=== PATIENT | male | born 1955 | race Caucasian/White ===

== ENCOUNTER → 2020-05-15 | Outpatient (CLI) | payer MEDICARE ==
--- NOTE | 2020-05-15 17:04 | Diagnostic Imaging Report ---
INDICATION: Right knee pain Three views of the right knee show no fracture, dislocation or other acute abnormalities. IMPRESSION: Negative right knee. Dictated by: Dictated on workstation # [id number]
== END ==
LOC: RAD FS 13:31
PROVIDERS: ATTEND Nurse Practitioner
DX: M25.561 Pain in right knee (principal)
CPT/HCPCS: 73562

== ENCOUNTER 2022-04-06 12:34 | Emergency (ER) | payer MEDICARE ==
[~2022-04-06] VITALS: Ht 180.3 cm; Wt 104.3 kg
[2022-04-06 12:40] VITALS: BP 179/99
--- NOTE | 2022-04-06 12:43 | ED GU-Female ---
General Chief Complaint: - Reproductive Stated Complaint: HEMATURIA History of Present Illness Date Seen by Provider: Apr 06, 2022 Time Seen by Provider: 12:39 Initial Comments 66-year-old male presents with hematuria. He reports that he has had 2 episodes of gross hematuria today whenever has some blood clots. He denies any flank pain he denies any fevers or chills. He is on a blood thinner. He reports last time this happened he had a urinary tract infection. He denies any nausea vomiting Allergies and Home Medications Allergies Coded Allergies: No Known Drug Allergies (Unverified , 04/06/22) Patient Home Medication List Home Medication List Reviewed: Yes Review of Systems Review of Systems Constitutional: No chills, No fever Respiratory: no symptoms reported Cardiovascular: no symptoms reported Gastrointestinal: no symptoms reported Genitourinary: see HPI; denies flank pain; hematuria, urgency Musculoskeletal: no symptoms reported Skin: no symptoms reported Psychiatric/Neurological: No Symptoms Reported Physical Exam Vital Signs Vital Signs - First Documented 04/06/22 12:40 Temp 36.6 Pulse 75 Resp 18 B/P (MAP) 179/99 (125) Pulse Ox 96 O2 Delivery Room Air Capillary Refill : Height, Weight, BMI Height: '" Weight: lbs. oz. kg; BMI Method: General Appearance: WD/WN, no apparent distress Cardiovascular: normal peripheral pulses, regular rate, rhythm Respiratory: lungs clear, normal breath sounds Gastrointestinal: non tender, soft Extremities: normal range of motion, non-tender Neurologic/Psychiatric: alert, normal mood/affect, oriented x 3 Skin: normal color, warm/dry Progress/Results/Core Measures Suspected Sepsis SIRS Temperature: Pulse: Respiratory Rate: Blood Pressure / Mean: Results/Orders Lab Results Laboratory Tests Test 04/06/22 12:38 Range/Units Urine Color YELLOW Urine Clarity CLEAR Urine pH 5.5 5-9 Urine Specific [place] <=1.005 1.016-1.022 Urine Protein NEGATIVE NEGATIVE Urine Glucose (UA) 1+ H NEGATIVE Urine Ketones NEGATIVE NEGATIVE Urine Nitrite NEGATIVE NEGATIVE Urine Bilirubin NEGATIVE NEGATIVE Urine Urobilinogen 0.2 < = 1.0 MG/DL Urine Leukocyte Esterase NEGATIVE NEGATIVE Urine RBC (Auto) 3+ H NEGATIVE Urine RBC 50-100 H /HPF Urine WBC NONE /HPF Urine Squamous Epithelial Cells 2-5 /HPF Urine Crystals NONE /LPF Urine Bacteria TRACE /HPF Urine Casts NONE /LPF Urine Mucus NEGATIVE /LPF Urine Culture Indicated NO My Orders Orders - PILAR MATIAS DO Ua Culture If Indicated (04/06/22 12:43) Ct Abdomen/Pelvis Wo (04/06/22 12:43) Vital Signs/I&O 04/06/22 12:40 Temp 36.6 Pulse 75 Resp 18 B/P (MAP) 179/99 (125) Pulse Ox 96 O2 Delivery Room Air Capillary Refill : Progress Note : Progress Note Patient's urine was reviewed and showed hematuria but no infection noted. CT showed enlarged prostate but no kidney stone or bladder abnormalities noted on CT. I discussed findings with patient. Discussed with patient the need to follow-up with his primary care provider Dr. Cedeño for further evaluation of both his hematuria and his enlarged prostate. This time no further work-up is indicated in the emergency room. We did discuss Flomax but patient has strong urine stream so do not feel like it would benefit him. Patient was stable and discharged home Departure Impression Primary Impression: Hematuria Qualified Codes: R31.9 - Hematuria, unspecified Additional Impression: Enlarged prostate Disposition: HOME, SELF-CARE Condition: Stable Departure-Patient Inst. Referrals: BHAVIK CEDEÑO MD (PCP) Primary Care Physician Patient Instructions: Blood in Urine (Hematuria), Adult ED Add. Discharge Instructions: Please follow-up with Dr. Cedeño in 3 to 4 days to have your urine rechecked to ensure that it is clearing. Also discussed further evaluation of your prostate. Follow-up sooner if the blood in your urine worsens or with any other concerns. All discharge instructions reviewed with patient and/or family. Voiced understanding. PILAR MATIAS DO Apr 06, 2022 12:43
[2022-04-06 12:48] LABS: BACTERIA,URINE TRACE /HPF; BILIRUBIN,URINE NEGATIVE (NEGATIVE); CLARITY,URINE CLEAR; COLOR,URINE YELLOW; GLUCOSE, URINE (UA) 1+ (NEGATIVE); KETONES,URINE NEGATIVE (NEGATIVE); LEUKOCYTE ESTERASE ,URINE NEGATIVE (NEGATIVE); NITRITE,URINE NEGATIVE (NEGATIVE); PH,URINE 5.5 (5-9); PROTEIN,URINE NEGATIVE (NEGATIVE); RBC,URINE 50-100 /HPF
--- NOTE | 2022-04-06 13:33 | Diagnostic Imaging Report ---
PROCEDURE: CT abdomen and pelvis without contrast. TECHNIQUE: Multiple contiguous axial images were obtained through the abdomen and pelvis without the use of intravenous contrast. Auto Exposure Controls were utilized during the CT exam to meet ALARA standards for radiation dose reduction. INDICATION: Hematuria. COMPARISON: No prior studies are available for comparison. FINDINGS: The lung bases are clear. The liver and gallbladder are unremarkable. There is no biliary ductal dilatation. The pancreas and spleen are unremarkable. No adrenal mass is detected. No definite renal calculi are detected. No ureteral calculi or hydronephrosis is detected. Aorta is nonaneurysmal. Small and large bowel loops are normal in caliber. Appendix is visualized and unremarkable. No free fluid is identified. There is diverticulosis of the sigmoid but no evidence of acute diverticulitis. Bladder is decompressed. Prostate is mildly enlarged. There is a fat-containing left inguinal hernia. IMPRESSION: 1. No evidence of urinary tract calculi or obstruction. 2. Uncomplicated diverticulosis. 3. Prostatomegaly. Dictated by: Dictated on workstation # [id number]
== END 2022-04-06 13:46 | disposition home or self-care (01) ==
LOC: EDUNIT# 12:34 → ER FS 12:35
DX: N40.1 Benign prostatic hyperplasia with lower urinary tract symptoms (principal); R31.9 Hematuria, unspecified; Z79.01 Long term (current) use of anticoagulants
CPT/HCPCS: 74176; 81000

== ENCOUNTER 2022-04-20 22:40 | Emergency (ER) | payer MEDICARE ==
[~2022-04-20] VITALS: Ht 185 cm; Wt 95.2 kg
--- NOTE | 2022-04-20 22:52 | ED Dyspnea ---
General Stated Complaint: TROUBLE BREATHING History of Present Illness Date Seen by Provider: Apr 20, 2022 Time Seen by Provider: 22:46 Initial Comments 66-year-old male with PMH of asthma, non-smoker, is here with complaints of shortness of breath which developed over period of 15 minutes after he was exposed to perfume sprayed by his granddaughter and her friends. Patient took a puff from his inhaler and a DuoNeb treatment at home which did not help much. Patient then went outdoors and walked for half a mile and that did not help much either. Patient is in the ER and is able to speak in complete sentences without much difficulty. Patient has associated chest tightness as well. Denies fever, cough, chills, leg swelling or leg pain, chest pain, palpitations. Allergies and Home Medications Allergies Coded Allergies: No Known Drug Allergies (Unverified , 04/06/22) Patient Home Medication List Home Medication List Reviewed: Yes Review of Systems Review of Systems Constitutional: no symptoms reported EENTM: no symptoms reported Respiratory: short of breath Cardiovascular: no symptoms reported Gastrointestinal: no symptoms reported Genitourinary: no symptoms reported Musculoskeletal: no symptoms reported Skin: no symptoms reported Psychiatric/Neurological: No Symptoms Reported Endocrine: No Symptoms Reported Hematologic/Lymphatic: No Symptoms Reported Past Ciryiit-Ubycmr-[id number] Hx Past Medical History Surgery/Hospitalization HX: TIA, HTN, high cholesterol Physical Exam Vital Signs Vital Signs - First Documented 04/20/22 22:48 Temp 36.9 Pulse 78 Resp 22 B/P (MAP) 166/90 (115) Pulse Ox 100 O2 Delivery Room Air Capillary Refill : Height, Weight, BMI Height: '" Weight: lbs. oz. kg; 32.00 BMI Method: General Appearance: No Apparent Distress, WD/WN HEENT: PERRL/EOMI Neck: Full Range of Motion Respiratory: Chest Non Tender, Lungs Clear, Normal Breath Sounds, No Accessory Muscle Use, No Respiratory Distress, Wheezing (Very mild, occasional, expiratory) Cardiovascular: Regular Rate, Rhythm, No Edema, Normal Peripheral Pulses Gastrointestinal: Non Tender, Soft Neurologic/Psychiatric: Alert, Oriented x3, No Motor/Sensory Deficits Skin: Normal Color Focused Exam Lactate Level 04/20/22 23:10: Lactic Acid Level 2.32*H Lactic Acid Level Laboratory Tests Test 04/20/22 23:10 Lactic Acid Level 2.32 MMOL/L (0.50-2.00) *H Progress/Results/Core Measures Results/Orders Lab Results Laboratory Tests Test 04/20/22 22:45 04/20/22 23:00 04/20/22 23:10 Range/Units Urine Color YELLOW Urine Clarity CLEAR Urine pH 6.0 5-9 Urine Specific [place] <=1.005 1.016-1.022 Urine Protein NEGATIVE NEGATIVE Urine Glucose (UA) TRACE H NEGATIVE Urine Ketones NEGATIVE NEGATIVE Urine Nitrite NEGATIVE NEGATIVE Urine Bilirubin NEGATIVE NEGATIVE Urine Urobilinogen 0.2 < = 1.0 MG/DL Urine Leukocyte Esterase NEGATIVE NEGATIVE Urine RBC (Auto) NEGATIVE NEGATIVE Urine RBC 0-2 /HPF Urine WBC 0-2 /HPF Urine Squamous Epithelial Cells 5-10 /HPF Urine Crystals NONE /LPF Urine Bacteria TRACE /HPF Urine Casts NONE /LPF Urine Mucus NEGATIVE /LPF Urine Culture Indicated NO Urine Opiates Screen NEGATIVE NEGATIVE Urine Oxycodone Screen NEGATIVE NEGATIVE Urine Methadone Screen NEGATIVE NEGATIVE Urine Propoxyphene Screen NEGATIVE NEGATIVE Urine Barbiturates Screen NEGATIVE NEGATIVE Ur Tricyclic Antidepressants Screen NEGATIVE NEGATIVE Urine Phencyclidine Screen NEGATIVE NEGATIVE Urine Amphetamines Screen NEGATIVE NEGATIVE Urine Methamphetamines Screen NEGATIVE NEGATIVE Urine Benzodiazepines Screen NEGATIVE NEGATIVE Urine Cocaine Screen NEGATIVE NEGATIVE Urine Cannabinoids Screen NEGATIVE NEGATIVE White Blood Count 6.6 4.3-11.0 10^3/uL Red Blood Count 4.62 4.30-5.52 10^6/uL Hemoglobin 15.5 13.3-17.7 g/dL Hematocrit 43 40-54 % Mean Corpuscular Volume 93 80-99 fL Mean Corpuscular Hemoglobin 34 25-34 pg Mean Corpuscular Hemoglobin Concent 36 32-36 g/dL Red Cell Distribution Width 13.5 10.0-14.5 % Platelet Count 162 130-400 10^3/uL Mean Platelet Volume 9.8 9.0-12.2 fL Immature Granulocyte % (Auto) 0 % Neutrophils (%) (Auto) 52 42-75 % Lymphocytes (%) (Auto) 31 12-44 % Monocytes (%) (Auto) 10 0-12 % Eosinophils (%) (Auto) 5 0-10 % Basophils (%) (Auto) 1 0-10 % Neutrophils # (Auto) 3.4 1.8-7.8 10^3/uL Lymphocytes # (Auto) 2.0 1.0-4.0 10^3/uL Monocytes # (Auto) 0.6 0.0-1.0 10^3/uL Eosinophils # (Auto) 0.4 H 0.0-0.3 10^3/uL Basophils # (Auto) 0.1 0.0-0.1 10^3/uL Immature Granulocyte # (Auto) 0.0 0.0-0.1 10^3/uL Prothrombin Time 13.2 12.2-14.7 SEC INR Comment 1.0 0.8-1.4 Activated Partial Thromboplast Time 29 24-35 SEC D-Dimer 0.76 H 0.00-0.49 UG/ML Sodium Level 135 135-145 MMOL/L Potassium Level 3.8 3.6-5.0 MMOL/L Chloride Level 100 98-107 MMOL/L Carbon Dioxide Level 24 21-32 MMOL/L Anion Gap 11 5-14 MMOL/L Blood Urea Nitrogen 18 7-18 MG/DL Creatinine 1.23 0.60-1.30 MG/DL Estimat Glomerular Filtration Rate 64 BUN/Creatinine Ratio 15 Glucose Level 171 H 70-105 MG/DL Calcium Level 8.7 8.5-10.1 MG/DL Corrected Calcium 8.8 8.5-10.1 MG/DL Magnesium Level 2.1 1.6-2.4 MG/DL Total Bilirubin 0.4 0.1-1.0 MG/DL Aspartate Amino Transf (AST/SGOT) 21 5-34 U/L Alanine Aminotransferase (ALT/SGPT) 36 0-55 U/L Alkaline Phosphatase 102 40-136 U/L Troponin I < 0.30 <0.30 NG/ML Pro-B-Type Natriuretic Peptide 8.5 <125.0 PG/ML Total Protein 6.9 6.4-8.2 GM/DL Albumin 3.9 3.2-4.5 GM/DL Lactic Acid Level 2.32 *H 0.50-2.00 MMOL/L My Orders Orders - JARVIS TERRY MD Cbc With Automated Diff (04/20/22 22:46) Comprehensive Metabolic Panel (04/20/22 22:46) Fibrin Degradation Products (04/20/22 22:46) Drug Screen Stat (Urine) (04/20/22 22:46) Lactic Acid Analyzer (04/20/22 22:46) Magnesium (04/20/22 22:46) Protime With Inr (04/20/22 22:46) Partial Thromboplastin Time (04/20/22 22:46) Ua Culture If Indicated (04/20/22 22:46) Probnp Fs (04/20/22 22:46) Troponin I Fs (04/20/22 22:46) Chest 1 View Ap/Pa Only (04/20/22 22:47) Albuterol/Ipra Inhalation Soln (Duoneb I (04/20/22 23:00) Svn Small Volume Nebulizer (04/20/22 22:53) Dexamethasone Injection (Decadron Inje (04/20/22 23:15) Albuterol/Ipra Inhalation Soln (Duoneb I (04/21/22 00:00) Svn Small Volume Nebulizer (04/20/22 23:54) Ekg Tracing (04/20/22 23:55) Medications Given in ED Current Medications Medications Dose Ordered Sig/Harika Route Start Time Stop Time Status Last Admin Dose Admin Albuterol/ Ipratropium 3 ml ONCE ONCE INH 04/20/22 23:00 04/20/22 23:01 DC 04/20/22 23:12 3 ML Albuterol/ Ipratropium 3 ml ONCE ONCE INH 04/21/22 00:00 04/21/22 00:01 DC 04/21/22 00:15 3 ML Dexamethasone Sodium Phosphate 10 mg ONCE ONCE IV 04/20/22 23:15 04/20/22 23:16 DC 04/20/22 23:16 10 MG Vital Signs/I&O 04/20/22 04/20/22 04/21/22 22:48 23:15 00:29 Temp 36.9 Pulse 78 Resp 22 B/P (MAP) 166/90 (115) Pulse Ox 100 100 100 O2 Delivery Room Air Room Air Room Air Progress Progress Note : Progress Note 1. ACUTE ASTHMA EXACERBATION: - CXR: no acute finding. X-ray read by me Collins x2 stat and dexamethasone 10 mg IV stat in ER, with complete resolution of symptoms. Vitals and oxygen saturation have been stable throughout ER stay. - Labs unremarkable except D-dimer is borderline elevated at 0.76. Clinical picture does not support a possible DVT or PE due to a Wells criteria of 0. H&P does not support a clot due to normal oxygen saturation, lungs are clear, no leg swelling or leg pain or chest pain, and symptoms have resolved with DuoNeb and Solu-Medrol. Also, patient is refusing a CTA of the chest stating that he feels better, and does not want to be exposed to more radiation since he just had a CT within the past 2 weeks. Advised patient to return to ER if he becomes more short of breath or has chest pain. -Follow-up with PCP within the next 3 to 7 days -Advised to air out house, and avoid triggers for asthma -The patient was seen in the ED, and treated appropriately to presentation at a specific point in time. Patient is informed that there is a possibility that disease and illness can evolve and change in acuity rapidly or slowly after p atient is discharged from the ER. Precautionary advice given to the patient for immediate return to ER if symptoms worsen or do not resolve, and to seek emergency care sooner rather than later. Pt also advised on the importance of PCP follow up and compliance with management and follow up plan with PCP and/or specialist, as this is part of the management plan. Pt verbally expressed understanding. Departure Impression Primary Impression: Acute asthma exacerbation Qualified Codes: J45.31 - Mild persistent asthma with (acute) exacerbation Disposition: 01 HOME, SELF-CARE Condition: Improved Departure-Patient Inst. Referrals: BHAVIK ARTEAGA MD (PCP/Family) Primary Care Physician Patient Instructions: Avoiding Asthma Triggers, Asthma, Adult (DC) Add. Discharge Instructions: Advised patient to return to ER if he becomes more short of breath or has chest pain. -Follow-up with PCP within the next 3 to 7 days -Advised to air out house, and avoid triggers for asthma JARVIS TERRY MD Apr 20, 2022 22:52
[2022-04-20] MEDS ORDERED: methylPREDNISolone 125 MG (Solu-MEDROL) VIAL IV STA (22:53)
[2022-04-20] MEDS ORDERED: RT-ALBUTEROL/IPRATROPIUM 3 ML (DUONEB) VIAL INH ONE (23:00)
[2022-04-20 23:08] LABS: BASOPHILS # (AUTO) 0.1 10^3/uL (0.0-0.1); BASOPHILS % (AUTO) 1 % (0-10); EOSINOPHILS # (AUTO) 0.4 10^3/uL (0.0-0.3); EOSINOPHILS % (AUTO) 5 % (0-10); HEMATOCRIT 43 % (40-54); HEMOGLOBIN 15.5 g/dL (13.3-17.7); LYMPHOCYTES % (AUTO) 31 % (12-44); MEAN CORPUSCULAR HEMOGLOBIN 34 pg (25-34); MEAN CORPUSCULAR HGB CONC 36 g/dL (32-36); MEAN CORPUSCULAR VOLUME 93 fL (80-99); MEAN PLATELET VOLUME 9.8 fL (9.0-12.2); MONOCYTES # (AUTO) 0.6 10^3/uL (0.0-1.0); MONOCYTES % (AUTO) 10 % (0-12); NEUTROPHILS # (AUTO) 3.4 10^3/uL (1.8-7.8); NEUTROPHILS % (AUTO) 52 % (42-75); PLATELET COUNT 162 10^3/uL (130-400); WHITE BLOOD COUNT 6.6 10^3/uL (4.3-11.0)
[2022-04-20 23:09] LABS: BILIRUBIN,URINE NEGATIVE (NEGATIVE); CLARITY,URINE CLEAR; COLOR,URINE YELLOW; GLUCOSE, URINE (UA) TRACE (NEGATIVE); KETONES,URINE NEGATIVE (NEGATIVE); LEUKOCYTE ESTERASE ,URINE NEGATIVE (NEGATIVE); NITRITE,URINE NEGATIVE (NEGATIVE); PROTEIN,URINE NEGATIVE (NEGATIVE)
[2022-04-20 23:12] LABS: BACTERIA,URINE TRACE /HPF; RBC,URINE 0-2 /HPF; WBC,URINE 0-2 /HPF
[2022-04-20 23:18] LABS: AMPHETAMINE SCREEN, URINE NEGATIVE (NEGATIVE); BENZODIAZEPINES SCREEN URINE NEGATIVE (NEGATIVE); COCAINE SCREEN URINE NEGATIVE (NEGATIVE)
[2022-04-20 23:19] LABS: BARBITURATE SCREEN URINE NEGATIVE (NEGATIVE); CANNABINOID SCREEN, URINE NEGATIVE (NEGATIVE); METHADONE STAT NEGATIVE (NEGATIVE); OPIATE SCREEN URINE NEGATIVE (NEGATIVE); OXYCODONE STAT NEGATIVE (NEGATIVE); PROPOXYPHENE STAT NEGATIVE (NEGATIVE); TRICYCLIC ANTIDEPRESSANTS SCRE NEGATIVE (NEGATIVE)
[2022-04-20 23:30] LABS: PROTHROMBIN TIME PATIENT 13.2 SEC (12.2-14.7)
[2022-04-20 23:33] LABS: ALANINE AMINOTRANSFERASE 36 U/L (0-55); ALBUMIN 3.9 GM/DL (3.2-4.5); ALKALINE PHOSPHATASE 102 U/L (40-136); BILIRUBIN,TOTAL 0.4 MG/DL (0.1-1.0); BUN/CREATININE RATIO 15; CALCIUM 8.7 MG/DL (8.5-10.1); CARBON DIOXIDE 24 MMOL/L (21-32); CHLORIDE 100 MMOL/L (98-107); CREATININE SERUM 1.23 MG/DL (0.60-1.30); GFR ESTIMATED 64; GLUCOSE 171 MG/DL (70-105); MAGNESIUM 2.1 MG/DL (1.6-2.4); POTASSIUM 3.8 MMOL/L (3.6-5.0); SODIUM 135 MMOL/L (135-145); TOTAL PROTEIN 6.9 GM/DL (6.4-8.2)
[2022-04-20 23:35] LABS: FIBRIN DEGRADATION PRODUCTS 0.76 UG/ML (0.00-0.49)
[2022-04-21] MEDS ORDERED: RT-ALBUTEROL/IPRATROPIUM 3 ML (DUONEB) VIAL INH ONE
[2022-04-21 00:53] VITALS: BP 152/88
--- NOTE | 2022-04-21 07:44 | Diagnostic Imaging Report ---
INDICATION: Shortness of breath COMPARISON: None available. TECHNIQUE: Single radiograph of the chest dated 04/20/2022. FINDINGS: The cardiac silhouette is within normal limits in size. No significant pulmonary vascular congestion. The lungs are clear of focal pulmonary opacity. No pleural effusion. No pneumothorax. No acute osseous abnormality. IMPRESSION: No acute cardiopulmonary abnormality. Dictated by: Dictated on workstation # [id number]
== END 2022-04-21 00:53 | disposition home or self-care (01) ==
LOC: EDUNIT# 22:40 → ER FS 22:44
DX: J45.901 Unspecified asthma with (acute) exacerbation (principal); Z28.310 Unvaccinated for COVID-19
CPT/HCPCS: 36415; 71045; 80053; 80306; 81000; 83605; 83735; 83880; 84484; 85025; 85379; 85610; 85730; 93005; 94640

== ENCOUNTER 2022-05-11 12:01 | Emergency (ER) | payer MEDICARE ==
[~2022-05-11] VITALS: Ht 180.3 cm; Wt 106.6 kg
[2022-05-11 12:09] VITALS: BP 177/82
[2022-05-11] MEDS ORDERED: meTOprolol 5 MG/5 ML (LOPRESSOR) VIAL IV STA (12:22)
[2022-05-11 12:27] LABS: BASOPHILS # (AUTO) 0.1 10^3/uL (0.0-0.1); BASOPHILS % (AUTO) 1 % (0-10); EOSINOPHILS # (AUTO) 0.2 10^3/uL (0.0-0.3); EOSINOPHILS % (AUTO) 4 % (0-10); HEMATOCRIT 45 % (40-54); HEMOGLOBIN 15.5 g/dL (13.3-17.7); LYMPHOCYTES # (AUTO) 1.5 10^3/uL (1.0-4.0); LYMPHOCYTES % (AUTO) 27 % (12-44); MEAN CORPUSCULAR HEMOGLOBIN 33 pg (25-34); MEAN CORPUSCULAR HGB CONC 35 g/dL (32-36); MEAN CORPUSCULAR VOLUME 95 fL (80-99); MEAN PLATELET VOLUME 9.6 fL (9.0-12.2); MONOCYTES # (AUTO) 0.5 10^3/uL (0.0-1.0); MONOCYTES % (AUTO) 8 % (0-12); NEUTROPHILS # (AUTO) 3.2 10^3/uL (1.8-7.8); NEUTROPHILS % (AUTO) 59 % (42-75); PLATELET COUNT 166 10^3/uL (130-400); WHITE BLOOD COUNT 5.3 10^3/uL (4.3-11.0)
[2022-05-11 12:29] LABS: COLOR,URINE YELLOIW
[2022-05-11 12:30] LABS: BACTERIA,URINE NEGATIVE /HPF; BILIRUBIN,URINE NEGATIVE (NEGATIVE); CLARITY,URINE SLIGHTLY CLOUDY; GLUCOSE, URINE (UA) TRACE (NEGATIVE); KETONES,URINE NEGATIVE (NEGATIVE); LEUKOCYTE ESTERASE ,URINE NEGATIVE (NEGATIVE); NITRITE,URINE NEGATIVE (NEGATIVE); PROTEIN,URINE NEGATIVE (NEGATIVE); RBC,URINE RARE /HPF; WBC,URINE RARE /HPF
--- NOTE | 2022-05-11 12:30 | ED General ---
General Chief Complaint: Cardiac/General Problems Stated Complaint: HIGH BLOOD PRESSURE 207/107, FEELS WEAK Source of Information: Patient History of Present Illness Date Seen by Provider: May 11, 2022 Time Seen by Provider: 12:05 Initial Comments 66-year-old male presenting with concerns for high blood pressure at home. He overall felt weak and had noticed that his blood pressure was 207/107 at home. He does take lisinopril with hydrochlorothiazide since around January 2022 but has felt more fatigued ever since he started the blood pressure medicine. He had used hand travel and dug 150 foot drainage trench at his property in the last few days. He complains of some left shoulder pain and arm feeling weak and different. He denies blurred vision, photophobia, headache, chest pain, nausea, vomiting, shortness of breath. He denies any recent change in his diet. He reports usually his blood pressure runs in the 1 30-1 60 range for the top number but occasionally will drop down to 98. Timing/Duration: 1-3 Hours Severity: Moderate Modifying Factors: improves with Rest (Blood pressure did come down with rest of the came to the ED.) Associated Systoms: No Chest Pain, No Cough, No Diaphoresis, No Fever/Chills, No Headaches, No Loss of Appetite; Malaise; No Nausea/Vomiting, No Rash, No Seizure, No Shortness of Air, No Syncope; Weakness (generalized) Allergies and Home Medications Allergies Coded Allergies: No Known Drug Allergies (Unverified , 04/06/22) Patient Home Medication List Home Medication List Reviewed: Yes Review of Systems Review of Systems Constitutional: No chills, No diaphoresis, No dizziness, No fever EENTM: no symptoms reported Respiratory: see HPI Cardiovascular: see HPI Gastrointestinal: see HPI Genitourinary: no symptoms reported Musculoskeletal: see HPI Skin: No change in color, No rash Psychiatric/Neurological: Anxiety; Denies Headache Hematologic/Lymphatic: Denies Blood Clots, Denies Easy Bleeding, Denies Easy Bruising Past Kxgfvwi-Vifpec-Pvlrhv Hx Patient Social History Tobacco Use?: No Smoking Status: Never a Smoker Smokeless Tobacco Frequency: Never a User Use of E-Cig and/or Vaping dev: No Use of E-Cig and/or Vaping Lázaro: Never a User Substance use?: No Alcohol Use?: No Pt feels they are or have been: No Immunizations Up To Date First/Initial COVID19 Vaccinat: NA Second COVID19 Vaccination Dane: NA 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 oz. kg; 27.00 BMI Method: General Appearance: No Apparent Distress, WD/WN, Anxious HEENT: PERRL/EOMI, Normal ENT Inspection, Pharynx Normal Neck: Full Range of Motion, Normal Inspection, Non Tender, Supple; No Carotid Bruit Respiratory: Chest Non Tender, Lungs Clear, Normal Breath Sounds, No Accessory Muscle Use, No Respiratory Distress Cardiovascular: Regular Rate, Rhythm, No Murmur, Normal Peripheral Pulses Gastrointestinal: Normal Bowel Sounds, No Pulsatile Mass, Non Tender, Soft Rectal: Deferred Extremity: Normal Capillary Refill, Normal Inspection, Normal Range of Motion, Non Tender, No Pedal Edema Neurologic/Psychiatric: Alert, Oriented x3, No Motor/Sensory Deficits, 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 Norm as Tested, Other (appears anxious) Skin: Normal Color, Warm/Dry Progress/Results/Core Measures Suspected Sepsis SIRS Temperature: Pulse: Respiratory Rate: Laboratory Tests 05/11/22 12:19: White Blood Count 5.3 Blood Pressure / Mean: Laboratory Tests 05/11/22 12:19: Creatinine 1.15, INR Comment 1.0, Platelet Count 166, Total Bilirubin 0.8 Results/Orders Lab Results Laboratory Tests Test 05/11/22 12:19 Range/Units White Blood Count 5.3 4.3-11.0 10^3/uL Red Blood Count 4.73 4.30-5.52 10^6/uL Hemoglobin 15.5 13.3-17.7 g/dL Hematocrit 45 40-54 % Mean Corpuscular Volume 95 80-99 fL Mean Corpuscular Hemoglobin 33 25-34 pg Mean Corpuscular Hemoglobin Concent 35 32-36 g/dL Red Cell Distribution Width 13.7 10.0-14.5 % Platelet Count 166 130-400 10^3/uL Mean Platelet Volume 9.6 9.0-12.2 fL Immature Granulocyte % (Auto) 0 % Neutrophils (%) (Auto) 59 42-75 % Lymphocytes (%) (Auto) 27 12-44 % Monocytes (%) (Auto) 8 0-12 % Eosinophils (%) (Auto) 4 0-10 % Basophils (%) (Auto) 1 0-10 % Neutrophils # (Auto) 3.2 1.8-7.8 10^3/uL Lymphocytes # (Auto) 1.5 1.0-4.0 10^3/uL Monocytes # (Auto) 0.5 0.0-1.0 10^3/uL Eosinophils # (Auto) 0.2 0.0-0.3 10^3/uL Basophils # (Auto) 0.1 0.0-0.1 10^3/uL Immature Granulocyte # (Auto) 0.0 0.0-0.1 10^3/uL Prothrombin Time 13.7 12.2-14.7 SEC INR Comment 1.0 0.8-1.4 Activated Partial Thromboplast Time 28 24-35 SEC Urine Color YELLOIW Urine Clarity SLIGHTLY CLOUDY Urine pH 6.0 5-9 Urine Specific [place] <=1.005 1.016-1.022 Urine Protein NEGATIVE NEGATIVE Urine Glucose (UA) TRACE H NEGATIVE Urine Ketones NEGATIVE NEGATIVE Urine Nitrite NEGATIVE NEGATIVE Urine Bilirubin NEGATIVE NEGATIVE Urine Urobilinogen 0.2 < = 1.0 MG/DL Urine Leukocyte Esterase NEGATIVE NEGATIVE Urine RBC (Auto) NEGATIVE NEGATIVE Urine RBC RARE /HPF Urine WBC RARE /HPF Urine Squamous Epithelial Cells 5-10 /HPF Urine Crystals NONE /LPF Urine Bacteria NEGATIVE /HPF Urine Casts NONE /LPF Urine Mucus NEGATIVE /LPF Urine Culture Indicated NO Sodium Level 139 135-145 MMOL/L Potassium Level 3.9 3.6-5.0 MMOL/L Chloride Level 103 98-107 MMOL/L Carbon Dioxide Level 25 21-32 MMOL/L Anion Gap 11 5-14 MMOL/L Blood Urea Nitrogen 17 7-18 MG/DL Creatinine 1.15 0.60-1.30 MG/DL Estimat Glomerular Filtration Rate 70 BUN/Creatinine Ratio 15 Glucose Level 168 H 70-105 MG/DL Calcium Level 9.0 8.5-10.1 MG/DL Corrected Calcium 8.9 8.5-10.1 MG/DL Magnesium Level 2.2 1.6-2.4 MG/DL Total Bilirubin 0.8 0.1-1.0 MG/DL Aspartate Amino Transf (AST/SGOT) 23 5-34 U/L Alanine Aminotransferase (ALT/SGPT) 36 0-55 U/L Alkaline Phosphatase 97 40-136 U/L Troponin I < 0.30 <0.30 NG/ML Pro-B-Type Natriuretic Peptide 64.9 <125.0 PG/ML Total Protein 7.1 6.4-8.2 GM/DL Albumin 4.1 3.2-4.5 GM/DL My Orders Orders - AMANDA OVIEDO MD Cbc With Automated Diff (05/11/22 12:22) Magnesium (05/11/22 12:22) Chest 1 View Ap/Pa Only (05/11/22:) Ekg Tracing (05/11/22 12:22) Comprehensive Metabolic Panel (05/11/22 12:22) Protime With Inr (05/11/22 12:) Partial Thromboplastin Time (05/11/22 12:) O2 (05/11/22 12:22) Monitor-Rhythm Ecg Trace Only (05/11/22 12:22) Ed Iv/Invasive Line Start (05/11/22 12:22) Troponin I Fs (05/11/22 12:22) Probnp Fs (05/11/22 12:22) Ua Culture If Indicated (05/11/22 12:22) Metoprolol Tartrate Injection (Lopressor (05/11/22 12:22) Vital Signs/I&O 05/11/22 05/11/22 12:09 12:09 Temp 35.6 Pulse 64 Resp 16 B/P (MAP) 177/82 (113) Pulse Ox 100 O2 Delivery Room Air Room Air Capillary Refill : Progress Note #1: Progress Note Potential diagnosis of labile hypertension, anxiety, stress, uncontrolled hypertension, electrolyte imbalance, renal failure, hepatic failure, medication noncompliance. Placed on cardiac telemetry monitoring his heart rate was in the 60s and a sinus rhythm. Obtain electrocardiogram to look for signs of ischemia or arrhythmia and on my interpretation and he was showing a sinus rhythm with heart rate in the 60s and no acute ST elevation. Overall appears similar to tracing from [facility] 2022. His blood pressure on arrival was 170 to 178 systolic over 78-82 diastolic. He had no complaints of headache,, chest pain, change in vision, nausea, vomiting to indicate that he was having hypertensive emergency or acute stroke or heart attack. Obtain peripheral IV access and send labs to check complete blood count, comprehensive metabolic profile, cardiac enzymes of troponin overnight and proBNP. Administer metoprolol 5 mg IV x1 to try and help bring his pressure down from the 170s over 80. 1 view chest x-ray looking for signs of pathology such as pleural effusion, cardiomegaly, pneumonia, lung mass. Progress Note #2: Progress Note Complete blood count does not show an elevated white blood cell count for infection or low hemoglobin for anemia. The comprehensive metabolic profile did not show any acute electrolyte abnormality or renal failure or hepatic failure to indicate a reason for his labile hypertension. His cardiac enzymes specifically troponin I and proBNP were not elevated to indicate an acute coronary syndrome, myocardial infarction, congestive heart failure. His 1 view chest x-ray did not show any acute process. His electrocardiogram was showing a sinus rhythm without ST elevation and appears similar to tracing from 3 weeks ago. His blood pressure did come down with the resting in the room as well as the single dose of metoprolol IV 5 mg. Reassured patient and family and counseled on follow-up and return precautions. Advised if his blood pressure was over 170 for the top number or over 90-100 for the bottom number that he should take an additional dose of his lisinopril at home. If that still is not helping or if he is having other symptoms such as numbness or weakness in his arms or legs or change in vision or headache he should be seen again. Otherwise follow-up through the clinic and they may have to adjust his medications or do something different medicine to help have better control of his blood pressures. Also given information about the DASH diet to try and help with his blood pressure from a diet standpoint ECG Initial ECG Impression Date: May 11, 2022 Initial ECG Impression Time: 12:13 Initial ECG Rate: 63 Initial ECG Rhythm: Normal Sinus Initial ECG Comparisson: Unchanged (04/20/2022) Comment My personal interpretation and review of the electrocardiogram shows a normal sinus rhythm with a heart rate of 63 bpm. MO interval [address] elevation. QT interval 385 ms with a QTc interval 393 ms. Overall appears similar to tracing from April 20, 2022. Diagnostic Imaging Diagonstic Imaging: Xray Plain Films/CT/US/NM/MRI: chest Comments On my personal interpretation and review of his 1 view chest x-ray did not show any acute process. Reviewed: Reviewed by Me Departure Impression Primary Impression: Labile hypertension Disposition: 01 HOME, SELF-CARE Condition: Stable Departure-Patient Inst. Decision time for Depature: 13:35 Referrals: BHAVIK ARTEAGA MD (PCP/Family) Primary Care Physician ISADORA GONZALEZ MD [facility] [place] Instructions: High Blood Pressure ED, Medicines for High Blood Pressure, DASH Diet Add. Discharge Instructions: Continue taking your regular medications. If you are feeling bad and you can take your blood pressure and its reading over 170 for the top number or over 90 for the bottom number you can take 1 addition al dose of your blood pressure medicine for that day to see if it would help to bring it down. Try to follow-up with the clinic and consider seeing cardiology or a neurology specialist to try and get better control of your blood pressure. You could also try using a different clinic provider. Continue to stay well-hydrated and get plenty of rest. All discharge instructions reviewed with patient and/or family. Voiced understanding. AMANDA OVIEDO MD May 11, 2022 12:30
[2022-05-11 12:35] LABS: PROTHROMBIN TIME PATIENT 13.7 SEC (12.2-14.7)
[2022-05-11 12:47] LABS: ALBUMIN 4.1 GM/DL (3.2-4.5); BILIRUBIN,TOTAL 0.8 MG/DL (0.1-1.0); CREATININE SERUM 1.15 MG/DL (0.60-1.30); MAGNESIUM 2.2 MG/DL (1.6-2.4); POTASSIUM 3.9 MMOL/L (3.6-5.0); TOTAL PROTEIN 7.1 GM/DL (6.4-8.2)
--- NOTE | 2022-05-11 16:45 | Diagnostic Imaging Report ---
INDICATION: Hypertension. COMPARISON: 04/20/2022. FINDINGS: There is flattening of the diaphragms suggesting a component of air trapping. There is no pneumonia or edema evident. There is no effusion or pneumothorax. Heart size is stable. IMPRESSION: Mild hyperinflation suggesting air trapping. No pneumonia or edema evident. Dictated by: Dictated on workstation # [id number]
== END 2022-05-11 13:45 | disposition home or self-care (01) ==
LOC: EDUNIT# 12:01 → ER FS 12:03
DX: I10 Essential (primary) hypertension (principal); Z79.899 Other long term (current) drug therapy
CPT/HCPCS: 36415; 71045; 80053; 81000; 83735; 83880; 84484; 85025; 85610; 85730; 93005; 93041

== ENCOUNTER 2022-05-13 15:11 | Emergency (ER) | payer MEDICARE ==
[~2022-05-13] VITALS: Ht 180.3 cm; Wt 106.8 kg
--- NOTE | 2022-05-13 15:22 | ED General ---
General Stated Complaint: STROKE LIKE SYMPTOMS Source of Information: Patient, Family () Exam Limitations: No Limitations History of Present Illness Date Seen by Provider: May 13, 2022 Time Seen by Provider: 15:09 Initial Comments 66-year-old male presents to the emergency department today for high blood pressure. He states he is not really having any new symptoms. He has had some mild pain and weakness in his left arm since he dug a hole on Friday. He is worried because he had a stroke in January with left arm weakness and tingling and with his elevated blood pressures he is concerned he may have another stroke. He was seen here on Friday for similar symptoms. He denies any fevers or chills. No new weakness and again symptoms have been persistent since Friday and the weakness in his arm is actually improving. He did have some dry heaving earlier which she thinks is related to nerves. Lab work was unremarkable as was his exam on Friday outside of hypertension. He was advised to double up on his lisinopril, he was previously taking 10 mg. He is taking 10 mg twice daily currently per his primary doctor instructions. They were actually on their way to see his primary doctor when his decided it would be better to have him seen here. All other systems reviewed and negative except documented per HPI. Voice recognition software was used to help create this chart Allergies and Home Medications Allergies Coded Allergies: No Known Drug Allergies (Unverified , 04/06/22) Patient Home Medication List Home Medication List Reviewed: Yes Review of Systems Review of Systems Constitutional: no symptoms reported Past Zxvhxlj-Wunbxg-Mlklxz Hx Patient Social History Tobacco Use?: No Use of E-Cig and/or Vaping dev: No Substance use?: No Alcohol Use?: No Immunizations Up To Date First/Initial COVID19 Vaccinat: NA Second COVID19 Vaccination Dane: NA Past Medical History Surgery/Hospitalization HX: TIA, HTN, high cholesterol Physical Exam Vital Signs Vital Signs - First Documented 05/13/22 15:11 Temp 37.0 Pulse 69 Resp 14 B/P (MAP) 167/84 (111) Pulse Ox 98 O2 Delivery Room Air Capillary Refill : Height, Weight, BMI Height: '" Weight: lbs. oz. kg; 32.00 BMI Method: General Appearance: No Apparent Distress, WD/WN HEENT: PERRL/EOMI, TMs Normal, Normal ENT Inspection, Pharynx Normal Neck: Full Range of Motion, Normal Inspection, Non Tender, Supple Respiratory: Chest Non Tender, Lungs Clear, Normal Breath Sounds, No Accessory Muscle Use, No Respiratory Distress Cardiovascular: Regular Rate, Rhythm, No Edema, No Gallop, No JVD, No Murmur, Normal Peripheral Pulses Gastrointestinal: Normal Bowel Sounds, No Organomegaly, No Pulsatile Mass, Non Tender, Soft Back: Normal Inspection, No Vertebral Tenderness Extremity: Normal Capillary Refill, Normal Inspection, Normal Range of Motion, Non Tender, No Calf Tenderness Neurologic/Psychiatric: Alert, Oriented x3, No Motor/Sensory Deficits, Normal 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, 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 Skin: Normal Color, Warm/Dry Progress/Results/Core Measures Suspected Sepsis SIRS Temperature: Pulse: Respiratory Rate: Laboratory Tests 05/13/22 15:20: White Blood Count 7.0 Blood Pressure / Mean: Laboratory Tests 05/13/22 15:20: Creatinine 1.13, INR Comment 1.0, Platelet Count 174, Total Bilirubin 0.7 Results/Orders Lab Results Laboratory Tests Test 05/13/22 15:20 Range/Units White Blood Count 7.0 4.3-11.0 10^3/uL Red Blood Count 4.84 4.30-5.52 10^6/uL Hemoglobin 15.9 13.3-17.7 g/dL Hematocrit 45 40-54 % Mean Corpuscular Volume 93 80-99 fL Mean Corpuscular Hemoglobin 33 25-34 pg Mean Corpuscular Hemoglobin Concent 35 32-36 g/dL Red Cell Distribution Width 13.6 10.0-14.5 % Platelet Count 174 130-400 10^3/uL Mean Platelet Volume 10.0 9.0-12.2 fL Immature Granulocyte % (Auto) 0 % Neutrophils (%) (Auto) 57 42-75 % Lymphocytes (%) (Auto) 30 12-44 % Monocytes (%) (Auto) 9 0-12 % Eosinophils (%) (Auto) 3 0-10 % Basophils (%) (Auto) 1 0-10 % Neutrophils # (Auto) 4.0 1.8-7.8 10^3/uL Lymphocytes # (Auto) 2.1 1.0-4.0 10^3/uL Monocytes # (Auto) 0.6 0.0-1.0 10^3/uL Eosinophils # (Auto) 0.2 0.0-0.3 10^3/uL Basophils # (Auto) 0.1 0.0-0.1 10^3/uL Immature Granulocyte # (Auto) 0.0 0.0-0.1 10^3/uL Prothrombin Time 16.5 H 12.2-14.7 SEC INR Comment 1.0 0.8-1.4 Sodium Level 140 135-145 MMOL/L Potassium Level 3.7 3.6-5.0 MMOL/L Chloride Level 103 98-107 MMOL/L Carbon Dioxide Level 25 21-32 MMOL/L Anion Gap 12 5-14 MMOL/L Blood Urea Nitrogen 15 7-18 MG/DL Creatinine 1.13 0.60-1.30 MG/DL Estimat Glomerular Filtration Rate 71 BUN/Creatinine Ratio 13 Glucose Level 135 H 70-105 MG/DL Calcium Level 9.0 8.5-10.1 MG/DL Corrected Calcium 8.8 8.5-10.1 MG/DL Total Bilirubin 0.7 0.1-1.0 MG/DL Aspartate Amino Transf (AST/SGOT) 24 5-34 U/L Alanine Aminotransferase (ALT/SGPT) 38 0-55 U/L Alkaline Phosphatase 95 40-136 U/L Total Protein 7.3 6.4-8.2 GM/DL Albumin 4.2 3.2-4.5 GM/DL My Orders Orders - KALLI ZURITA DO Cbc With Automated Diff (05/13/22 15:18) Comprehensive Metabolic Panel (05/13/22 15:18) Protime With Inr (05/13/22 15:18) Ct Head Wo (05/13/22 15:18) Vital Signs/I&O 05/13/22 15:11 Temp 37.0 Pulse 69 Resp 14 B/P (MAP) 167/84 (111) Pulse Ox 98 O2 Delivery Room Air Capillary Refill : ECG Comment Sinus rhythm with a rate of 70 bpm. Normal intervals. Normal axis. No ST or T wave abnormalities. No ectopy. No STEMI. Departure Communication (Admissions) Patient is hemodynamically stable outside of some moderate hypertension. This resolves with observation alone. Blood pressure at the time my reevaluation is 129/88. Completely asymptomatic and has been so throughout his emergency department stay. His CT scan is negative. Given that he has had left arm weakness that is improving since Friday I think this is likely not related to a stroke. It is more likely related to shoveling activities. He will continue to work with his primary doctor on blood pressure control. His labs are unremarkable. He is discharged home in stable condition. Impression Primary Impression: Hypertension Qualified Codes: I10 - Essential (primary) hypertension Disposition: HOME, SELF-CARE Condition: Stable Departure-Patient Inst. Referrals: BHAVIK CEDEÑO MD (PCP/Family) Primary Care Physician Patient Instructions: High Blood Pressure (DC) Add. Discharge Instructions: Keep a log of your blood pressure twice daily at home. Follow-up with Dr. Cedeño for further discussion of blood pressure management. Return to the emergency department immediately for any severe headaches, changes in your vision or chest pain. KALLI ZURITA DO May 13, 2022 15:22
[2022-05-13 15:28] LABS: BASOPHILS # (AUTO) 0.1 10^3/uL (0.0-0.1); BASOPHILS % (AUTO) 1 % (0-10); EOSINOPHILS # (AUTO) 0.2 10^3/uL (0.0-0.3); EOSINOPHILS % (AUTO) 3 % (0-10); HEMATOCRIT 45 % (40-54); HEMOGLOBIN 15.9 g/dL (13.3-17.7); LYMPHOCYTES # (AUTO) 2.1 10^3/uL (1.0-4.0); LYMPHOCYTES % (AUTO) 30 % (12-44); MEAN CORPUSCULAR HEMOGLOBIN 33 pg (25-34); MEAN CORPUSCULAR HGB CONC 35 g/dL (32-36); MEAN CORPUSCULAR VOLUME 93 fL (80-99); MONOCYTES # (AUTO) 0.6 10^3/uL (0.0-1.0); MONOCYTES % (AUTO) 9 % (0-12); NEUTROPHILS % (AUTO) 57 % (42-75); PLATELET COUNT 174 10^3/uL (130-400)
--- NOTE | 2022-05-13 15:36 | Diagnostic Imaging Report ---
PROCEDURE: CT head without contrast. TECHNIQUE: Multiple contiguous axial images were obtained through the brain without the use of intravenous contrast. Auto Exposure Controls were utilized during the CT exam to meet ALARA standards for radiation dose reduction. DATE: May 13, 2022. COMPARISON: None. INDICATION: 66-year-old male, left arm tingling. Hypertension. FINDINGS: There is a near empty sella. The ventricles and cerebral spinal fluid spaces are of otherwise normal size and configuration for the patient's age. There is no mass effect or midline shift. There is no acute intracranial hemorrhage. There is no abnormal extra-axial fluid collection. The visualized portions of the paranasal sinuses, mastoid air cells and middle ears are well aerated. IMPRESSION: No identified acute intracranial abnormality. Dictated by: Dictated on workstation # [id number]
[2022-05-13 15:44] LABS: PROTHROMBIN TIME PATIENT 16.5 SEC (12.2-14.7)
[2022-05-13 15:46] LABS: POTASSIUM 3.7 MMOL/L (3.6-5.0)
[2022-05-13 15:47] LABS: ALBUMIN 4.2 GM/DL (3.2-4.5); BILIRUBIN,TOTAL 0.7 MG/DL (0.1-1.0); CREATININE SERUM 1.13 MG/DL (0.60-1.30); TOTAL PROTEIN 7.3 GM/DL (6.4-8.2)
[2022-05-13 16:08] VITALS: BP 152/88
== END 2022-05-13 16:10 | disposition home or self-care (01) ==
LOC: EDUNIT# 15:11 → ER FS 15:13
DX: I10 Essential (primary) hypertension (principal); Z79.899 Other long term (current) drug therapy
CPT/HCPCS: 36415; 70450; 80053; 85025; 85610; 93005